=== PATIENT | male | born 1925 | race Hispanic/Latino ===

== ENCOUNTER 2017-07-30 20:18 | Inpatient (IN) | payer MEDICARE ==
[~2017-07-30] VITALS: Ht 167.6 cm; Wt 52.2 kg
[2017-07-30 20:54] LABS: BASOPHILS % (AUTO) 0.5 % (0.0-5.0); EOSINOPHILS % (AUTO) 0.7 % (0.0-8.0); HEMATOCRIT 34.6 % (42-54); LYMPHOCYTES % (AUTO) 5.2 % (21.0-51.0); MEAN CORPUSCULAR HEMOGLOBIN 32.1 pg (27.0-33.0); MEAN CORPUSCULAR HGB CONC 33.7 g/dL (32.0-36.0); MEAN CORPUSCULAR VOLUME 95.4 fL (79-99); MONOCYTES % (AUTO) 3.5 % (3.0-13.0); NEUTROPHILS % (AUTO) 90.1 % (40.0-77.0); PLATELET COUNT (AUTO) 238 K/uL (130-400); RED BLOOD CELL COUNT(AUTO) 3.62 MIL/uL (4.50-6.20); RED CELL DISTRIBUTION WIDTH 13.5 % (11.0-15.5); WHITE BLOOD COUNT (AUTO) 9.8 K/uL (4.8-10.8)
[2017-07-30 20:56] LABS: CREATININE 4.5 mg/dL (0.5-1.5); POTASSIUM 4.1 mmol/L (3.5-5.1)
[2017-07-30 20:59] LABS: PARTIAL THROMBOPLASTIN TIME 25.2 SEC (26.3-35.5); PROTHROMBIN TIME 10.5 SEC (9.6-11.6)
[2017-07-30 21:05] LABS: ALBUMIN 3.4 g/dL (3.5-5.0); BILIRUBIN,TOTAL 0.5 mg/dL (0.2-1.0); TOTAL PROTEIN, SERUM 7.6 g/dL (6.0-8.3)
[2017-07-30] MEDS ORDERED: SODIUM CHLORIDE 0.9% 1000ML 1,000 ML IV ONE (22:01)
[2017-07-30 22:16] LABS: APPEARANCE,URINE Clear (CLEAR); BILIRUBIN,URINE Negative (NEGATIVE); COLOR,URINE Yellow (YELLOW); GLUCOSE, URINE (UA) 250 mg/dL (NEGATIVE); KETONES,URINE Negative (NEGATIVE); LEUKOCYTE ESTERASE ,URINE Negative (NEGATIVE); NITRATE,URINE Negative (NEGATIVE); OCCULT BLOOD,URINE Moderate (NEGATIVE); PH,URINE 7.5 (5.0-8.0); PROTEIN,URINE >=1000 (NEGATIVE); UROBILINOGEN,URINE 0.2 mg/dL (0.2-1.0)
[2017-07-30 22:30] LABS: BACTERIA,URINE None Seen /HPF (None Seen); MUCUS,URINE None Seen LPF (None Seen); SQUAMOUS EPITHELIAL CELL,UR None Seen /LPF (0-2); WBC,URINE None Seen /HPF (0-1)
[2017-07-30] MEDS ORDERED: CEFTRIAXONE SODIUM 1 GM ONE (23:25)
[2017-07-31] MEDS: SODIUM CHLORIDE 0.9% 1000ML 1,000 ML IV SCH ×3 (00:43→22:37)
[2017-07-31] MEDS ORDERED: NITROGLYCERIN 0.4 MG SL TAB SL PRN (00:45)
[2017-07-31] MEDS ORDERED: ONDANSETRON HCL 4 MG/2 ML VIAL IV PRN (00:45)
[2017-07-31] MEDS ORDERED: LACTULOSE 20 GM/30 ML UDCUP PO PRN (00:45)
[2017-07-31] MEDS ORDERED: CEFTRIAXONE 1GM/D5W 50ML 50 ML IV SCH (00:45)
[2017-07-31] MEDS ORDERED: DiphenhydrAMINE HCL 50 MG/ML VIAL IV PRN (00:45)
[2017-07-31] MEDS ORDERED: ACETAMINOPHEN 325 MG TAB PO PRN ×2 (00:45)
[2017-07-31] MEDS ORDERED: SODIUM CHLORIDE 0.9% 1000ML 1,000 ML IV ONE (02:28)
[2017-07-31] MEDS ORDERED: HYDRALAZINE HCL 20 MG/ML VIAL ONE (04:34)
[2017-07-31 04:39] LABS: HEMATOCRIT 27.4 % (42-54); MEAN CORPUSCULAR HEMOGLOBIN 31.7 pg (27.0-33.0); MEAN CORPUSCULAR HGB CONC 33.7 g/dL (32.0-36.0); PLATELET COUNT (AUTO) 191 K/uL (130-400); RED BLOOD CELL COUNT(AUTO) 2.91 MIL/uL (4.50-6.20); RED CELL DISTRIBUTION WIDTH 13.5 % (11.0-15.5)
[2017-07-31 05:06] LABS: ALBUMIN 2.7 g/dL (3.5-5.0); BILIRUBIN,TOTAL 0.3 mg/dL (0.2-1.0); CREATINE KINASE MB 3.5 ng/mL (0.5-3.6); CREATININE 4.5 mg/dL (0.5-1.5); POTASSIUM 4.2 mmol/L (3.5-5.1); TROPONIN I 0.06 ng/mL (0.00-0.06)
[2017-07-31 05:13] LABS: EOSINOPHILS % (MANUAL) 4 % (1-6); LYMPHOCYTES % (MANUAL) 17 % (22-44); MAN.DIFF COMMENT-IMPRESSION MANUAL DIFFERENTIAL; MONOCYTES % (MANUAL) 7 % (2-9); PLATELET MORPHOLOGY COMMENT ADEQUATE; SEGMENTED NEUTROPHILS % 72 % (40-70)
[2017-07-31] MEDS ORDERED: FAMOTIDINE 20MG TAB 20 MG TAB ONE (08:15)
[2017-07-31 09:00] VITALS: BP 185/86
[2017-07-31] MEDS: FAMOTIDINE 20MG TAB 20 MG TAB PO SCH ×2 (09:00→22:43)
[2017-07-31] MEDS ORDERED: AMLO5TAB2 PO (10:02)
[2017-07-31] MEDS ORDERED: CHOL200013 PO (10:02)
[2017-07-31] MEDS ORDERED: FERR325T22 PO (10:02)
[2017-07-31] MEDS ORDERED: SODI650T PO (10:02)
[2017-07-31] MEDS ORDERED: DONE5TAB33 PO (10:02)
[2017-07-31] MEDS ORDERED: SIMV20TA6 PO (10:02)
[2017-07-31] MEDS ORDERED: FOLI1TAB85 PO (10:02)
[2017-07-31] MEDS ORDERED: CILO50TA PO (10:02)
[2017-07-31] MEDS ORDERED: DULO20CA17 PO (10:02)
[2017-07-31] MEDS ORDERED: LABETALOL 20 MG/4 ML DISP.SYRIN IV PRN (10:15)
[2017-07-31 11:00] VITALS: BP 150/75
[2017-07-31] MEDS: AMLODIPINE BESYLATE 5 MG TAB PO SCH (13:19)
[2017-07-31 16:00] VITALS: BP 170/69
[2017-07-31] MEDS ORDERED: HALOPERIDOL LACTATE 5 MG/ML VIAL ONE (16:58)
[2017-07-31] MEDS: HYDRALAZINE HCL 20 MG/ML VIAL IV PRN (17:18)
[2017-07-31] MEDS: CILOSTAZOL 100 MG TAB PO SCH (17:18)
[2017-07-31] MEDS: HALOPERIDOL LACTATE 5 MG/ML VIAL IV PRN ×2 (17:19→23:21)
[2017-07-31 19:45] VITALS: BP 156/78
[2017-07-31] MEDS: CEFTRIAXONE SODIUM 1 GM IVP SCH (22:38)
[2017-07-31] MEDS: DONEPEZIL HCL 5 MG TAB PO SCH (22:43)
[2017-07-31] MEDS: SODIUM BICARBONATE 650 MG TAB PO SCH (22:43)
[2017-07-31] MEDS: ATORVASTATIN CALCIUM 10 MG TABLET PO SCH (22:43)
[2017-07-31 23:25] VITALS: BP 131/66
[2017-08-01 03:08] VITALS: BP 150/84
[2017-08-01 03:56] LABS: HEMATOCRIT 30.3 % (42-54); MEAN CORPUSCULAR HEMOGLOBIN 33.3 pg (27.0-33.0); MEAN CORPUSCULAR HGB CONC 35.2 g/dL (32.0-36.0); MEAN CORPUSCULAR VOLUME 94.6 fL (79-99); PLATELET COUNT (AUTO) 210 K/uL (130-400); RED CELL DISTRIBUTION WIDTH 13.9 % (11.0-15.5); WHITE BLOOD COUNT (AUTO) 10.6 K/uL (4.8-10.8)
[2017-08-01 04:09] LABS: CREATININE 4.4 mg/dL (0.5-1.5); MAGNESIUM 1.8 mg/dL (1.80-2.40); PHOSPHORUS 3.7 mg/dL (2.5-4.9); POTASSIUM 3.5 mmol/L (3.5-5.1); URIC ACID 4.8 mg/dL (2.6-7.2)
[2017-08-01] MEDS: SODIUM CHLORIDE 0.9% 1000ML 1,000 ML IV SCH ×2 (06:27→11:04)
[2017-08-01] MEDS: CILOSTAZOL 100 MG TAB PO SCH (06:27)
[2017-08-01 08:00] VITALS: BP 173/89
[2017-08-01] MEDS: CHOLECALCIFEROL 2000 UNIT PO SCH (09:00)
[2017-08-01] MEDS: DULOXETINE HCL 20 MG PO SCH (09:00)
[2017-08-01 11:00] VITALS: BP 165/99
[2017-08-01] MEDS: SODIUM BICARBONATE 650 MG TAB PO SCH ×2 (11:03→21:16)
[2017-08-01] MEDS: AMLODIPINE BESYLATE 5 MG TAB PO SCH (11:03)
[2017-08-01] MEDS: FAMOTIDINE 20MG TAB 20 MG TAB PO SCH ×2 (11:03→21:16)
[2017-08-01] MEDS: FERROUS SULFATE 325 MG TABLET.DR PO SCH (11:03)
[2017-08-01] MEDS: FOLIC ACID/VITAMIN B COMP W-C 1 MG CAPSULE PO SCH (11:03)
[2017-08-01] MEDS: VITAMIN B COMPLEX 1 CAPSULE PO SCH (11:03)
[2017-08-01] MEDS: THIAMINE HCL 100 MG/ML 2ML VIAL IVP SCH (11:04)
[2017-08-01] MEDS ORDERED: 1/2 NORMAL SALINE 1,000 ML IV SCH (13:30)
[2017-08-01 16:00] VITALS: BP 149/59
[2017-08-01 19:47] VITALS: BP 141/70
[2017-08-01] MEDS: DONEPEZIL HCL 5 MG TAB PO SCH (21:16)
[2017-08-01] MEDS: CEFTRIAXONE SODIUM 1 GM IVP SCH (21:16)
[2017-08-01] MEDS: ATORVASTATIN CALCIUM 10 MG TABLET PO SCH (21:16)
[2017-08-01 23:30] VITALS: BP 167/73
[2017-08-02 03:50] VITALS: BP 161/81
[2017-08-02 04:05] LABS: HEMATOCRIT 31.2 % (42-54); MEAN CORPUSCULAR HEMOGLOBIN 31.9 pg (27.0-33.0); MEAN CORPUSCULAR HGB CONC 33.8 g/dL (32.0-36.0); MEAN CORPUSCULAR VOLUME 94.3 fL (79-99); PLATELET COUNT (AUTO) 209 K/uL (130-400); RED CELL DISTRIBUTION WIDTH 13.7 % (11.0-15.5); WHITE BLOOD COUNT (AUTO) 10.3 K/uL (4.8-10.8)
[2017-08-02 04:22] LABS: CREATININE 4.3 mg/dL (0.5-1.5); POTASSIUM 3.2 mmol/L (3.5-5.1)
[2017-08-02 07:00] VITALS: BP 181/76
[2017-08-02] MEDS: DULOXETINE HCL 20 MG PO SCH (09:00)
[2017-08-02] MEDS: CHOLECALCIFEROL 2000 UNIT PO SCH (09:00)
[2017-08-02] MEDS: AMLODIPINE BESYLATE 5 MG TAB PO SCH (10:18)
[2017-08-02] MEDS: FAMOTIDINE 20MG TAB 20 MG TAB PO SCH ×2 (10:18→22:53)
[2017-08-02] MEDS: FERROUS SULFATE 325 MG TABLET.DR PO SCH (10:18)
[2017-08-02] MEDS: FOLIC ACID/VITAMIN B COMP W-C 1 MG CAPSULE PO SCH (10:18)
[2017-08-02] MEDS: SODIUM BICARBONATE 650 MG TAB PO SCH ×2 (10:18→22:53)
[2017-08-02] MEDS: VITAMIN B COMPLEX 1 CAPSULE PO SCH (10:18)
[2017-08-02] MEDS: THIAMINE HCL 100 MG/ML 2ML VIAL IVP SCH (10:20)
[2017-08-02 11:00] VITALS: BP 184/88
[2017-08-02 16:00] VITALS: BP 156/72
[2017-08-02 20:00] VITALS: BP 172/80
[2017-08-02] MEDS ORDERED: WATER FOR INJECTION,STERILE 20 ML VIAL ONE (20:00)
[2017-08-02] MEDS: CEFTRIAXONE SODIUM 1 GM IVP SCH (22:52)
[2017-08-02] MEDS: DONEPEZIL HCL 5 MG TAB PO SCH (22:53)
[2017-08-02] MEDS: ATORVASTATIN CALCIUM 10 MG TABLET PO SCH (22:53)
[2017-08-02] MEDS: CARVEDILOL 6.25 MG TABLET PO SCH (22:57)
[2017-08-03] VITALS: BP 171/69
[2017-08-03 04:00] VITALS: BP 174/83
[2017-08-03 04:05] LABS: HEMATOCRIT 30.9 % (42-54); MEAN CORPUSCULAR HEMOGLOBIN 32.6 pg (27.0-33.0); MEAN CORPUSCULAR HGB CONC 34.7 g/dL (32.0-36.0); MEAN CORPUSCULAR VOLUME 93.8 fL (79-99); PLATELET COUNT (AUTO) 198 K/uL (130-400); RED BLOOD CELL COUNT(AUTO) 3.29 MIL/uL (4.50-6.20); RED CELL DISTRIBUTION WIDTH 13.7 % (11.0-15.5); WHITE BLOOD COUNT (AUTO) 11.3 K/uL (4.8-10.8)
[2017-08-03 04:06] LABS: CREATININE 4.3 mg/dL (0.5-1.5); POTASSIUM 3.2 mmol/L (3.5-5.1)
[2017-08-03] MEDS: HYDRALAZINE HCL 20 MG/ML VIAL IV PRN (04:53)
[2017-08-03 07:00] VITALS: BP 155/75
[2017-08-03] MEDS: AMLODIPINE BESYLATE 5 MG TAB PO SCH (08:21)
[2017-08-03] MEDS: FERROUS SULFATE 325 MG TABLET.DR PO SCH (08:21)
[2017-08-03] MEDS: FOLIC ACID/VITAMIN B COMP W-C 1 MG CAPSULE PO SCH (08:22)
[2017-08-03] MEDS: CHOLECALCIFEROL 2000 UNIT PO SCH (08:22)
[2017-08-03] MEDS: VITAMIN B COMPLEX 1 CAPSULE PO SCH (08:22)
[2017-08-03] MEDS: THIAMINE HCL 100 MG/ML 2ML VIAL IVP SCH (08:22)
[2017-08-03] MEDS: SODIUM BICARBONATE 650 MG TAB PO SCH (08:22)
[2017-08-03] MEDS: DULOXETINE HCL 20 MG PO SCH (08:22)
[2017-08-03] MEDS: FAMOTIDINE 20MG TAB 20 MG TAB PO SCH (08:22)
[2017-08-03] MEDS: CARVEDILOL 6.25 MG TABLET PO SCH (08:22)
[2017-08-03 11:00] VITALS: BP 144/61
[2017-08-03 16:00] VITALS: BP 146/65
[2017-09-17] MEDS ORDERED: AMLO2.5T PO (16:33)
[2017-09-17] MEDS ORDERED: FURO20TA4 PO (16:33)
[2017-09-23] MEDS ORDERED: AMOX-426 PO (07:53)
[2017-09-23] MEDS ORDERED: METO25 PO (07:53)
[2017-12-29] MEDS ORDERED: RISP0.252 PO (00:55)
[2017-12-29] MEDS ORDERED: TRAZ-144 PO (00:55)
[2017-12-29] MEDS ORDERED: ASPI-1005 PO (12:23)
[2017-12-29] MEDS ORDERED: FAMO-136 PO (12:23)
== END 2017-08-03 18:25 | disposition home or self-care (01) | DRG 683 ==
LOC: EDH 20:18 → OBSVTOIN 23:50 → EDHIP 23:50 → 3BH 07-31 08:42
PROVIDERS: ADMIT Internal Medicine; ATTEND Internal Medicine
DX: N17.9 Acute kidney failure, unspecified (principal); E44.1 Mild protein-calorie malnutrition; D64.9 Anemia, unspecified; G30.9 Alzheimer's disease, unspecified; F02.80 Dementia in other diseases classified elsewhere, unspecified severity, without behavioral disturbance, psychotic disturbance, mood disturbance, and anxiety; Z68.1 Body mass index [BMI] 19.9 or less, adult; I12.9 Hypertensive chronic kidney disease with stage 1 through stage 4 chronic kidney disease, or unspecified chronic kidney disease; I16.0 Hypertensive urgency; N18.9 Chronic kidney disease, unspecified; E87.6 Hypokalemia; I25.10 Atherosclerotic heart disease of native coronary artery without angina pectoris; I73.9 Peripheral vascular disease, unspecified; N40.0 Benign prostatic hyperplasia without lower urinary tract symptoms; Z74.01 Bed confinement status; Z86.718 Personal history of other venous thrombosis and embolism; Z86.73 Personal history of transient ischemic attack (TIA), and cerebral infarction without residual deficits; Z95.1 Presence of aortocoronary bypass graft; Z87.440 Personal history of urinary (tract) infections
CPT/HCPCS: 36415; 71045; 76770; 80048; 80053; 80061; 81001; 82550; 82553; 83735; 83874; 84100; 84484; 84550; 85025; 85027; 85610; 85730; 87040; 87088; 87804; 92610; 93005; A4344; J0360; J0696; J1200; J1630; J3411; J7030